=== PATIENT | male | born 1980 | race Caucasian/White ===

== ENCOUNTER 2018-11-26 00:14 | Day surgery (SDC) | payer OTHER ==
[~2018-11-26] VITALS: Ht 175.3 cm; Wt 81.6 kg
[2018-11-26] VITALS (9 sets, daily range): BP systolic 93–128; BP diastolic 60–77
[~2018-11-26 00:14] MED LIST: ASPI81TA94 PO; SAW450CA3 PO
[2018-11-26] MEDS ORDERED: LIDOCAINE MPF 1% 5 ML VIAL ONE (07:46)
[2018-11-26] MEDS ORDERED: PROPOFOL EMUL(*) 10MG/ML 20 ML 20 ML ONE (07:46)
[2018-11-26] MEDS ORDERED: METOCLOPRAMIDE 10 MG/2 ML SDV ONE (07:46)
[2018-11-26] MEDS ORDERED: ONDANSETRON 4 MG/2 ML VIAL ONE (07:46)
[2018-11-26] MEDS ORDERED: DEXAMETHASONE SOD 4 MG/ML VIAL ONE (07:46)
[2018-11-26] MEDS ORDERED: ROCURONIUM BROM 10 MG/ML 10 ML ONE (07:49)
[2018-11-26] MEDS ORDERED: SUGAMMADEX SOD 200 MG/2 ML SDV ONE (07:49)
[2018-11-26] MEDS ORDERED: LIDOCAINE/SOD BICARB 8.4% SYR ID ONE (08:25)
[2018-11-26] MEDS ORDERED: NORMOSOL R SOLN(*) 1000 ML BAG 1,000 ML IV PRN (08:25)
[2018-11-26] MEDS ORDERED: MIDAZOLAM 2 MG/2 ML VIAL IVP PRN (08:25)
[2018-11-26] MEDS ORDERED: FAMOTIDINE 20 MG TAB PO ONE (08:25)
[2018-11-26] MEDS ORDERED: fentaNYL CITR 100 MCG/2 ML AMP ONE ×3 (08:42→11:59)
[2018-11-26] MEDS ORDERED: CLINDAMYCIN(*) 600 MG/NS 50 ML 50 ML IVPB ONE (08:55)
[2018-11-26] MEDS ORDERED: LEVOFLOXACIN/D5W 750 MG/150 ML 150 ML IVPB ONE (08:55)
[2018-11-26] MEDS ORDERED: BUPIVACAINE/EPI 0.5% 50ML VIAL INFIL ONE (09:20)
[2018-11-26] MEDS ORDERED: TRAM-420 PO (10:57)
--- NOTE | 2018-11-26 11:04 | Short(Outpt) Discharge Summary ---
Discharge Summary Reason for Hosp/Final Diag: (1) Right inguinal hernia Hospital Course & Plan: 38 yo m presented for right inguinal hernia repair. he tolerated the procedure well and there were no complications. he will discharged home when criteria met. Departure Discharge to: Home Discharge Instructions Home Meds Active Scripts Tramadol Hcl (TRAMADOL HCL) 50 Mg Tablet, 1 TAB PO Q4H PRN for PAIN, #20 TAB 0 Refills Prov:JOAO CASTANO MD 11/26/18 Diet: Regular Special Instructions: no lifting more than 15 lbs for 3 wks ok to shower tomorrow stool softener and scrotal support can be helpful please call for 2 wk follow up appt ([phone]) TERI LLAMAS Nov 26, 2018 11:04
--- NOTE | 2018-11-26 11:09 | Post Operative Progress Note ---
Post Operative Progress Note Date: Nov 26, 2018 Time: 11:05 Surgeon: chayito cota md #[id number] Accreditation Coordinator: none Anesthesia: gen, local dr. deal Pre-Op Diagnosis: right inguinal hernia Post-Op Diagnosis: same Findings: indirect right inguinal hernia Procedure(s): laparoscopic right inguinal hernia repair with mesh Specimen Removed:(May be N/A): none Complications: none Fluids: iv crystalloid Estimated Blood Loss: minimal Date OP Note Dictated: Nov 26, 2018 Time OP Note Dictated: 11:06 TERI COTA Nov 26, 2018 11:09
--- NOTE | 2018-11-26 11:38 | OPERATIVE REPORT 1 ---
EVENT DATE: November 26, 2018 SURGEON: Davion Lou MD ANESTHESIOLOGIST: Ye Jiménez MD ANESTHESIA: General and local PREOPERATIVE DIAGNOSIS Right inguinal hernia. POSTOPERATIVE DIAGNOSIS Right inguinal hernia. PROCEDURE PERFORMED Laparoscopic right inguinal hernia repair with mesh. FLUIDS IV Crystalloid ESTIMATED BLOOD LOSS Minimal. SPECIMENS None. COMPLICATIONS None. INDICATIONS This is a 38-year-old male with a right inguinal hernia that is bothersome to him. Risk and benefits of the procedure were explained and consent was signed. DESCRIPTION OF PROCEDURE The patient was taken to the operating room and placed in the supine position. General anesthesia was administered per the anesthesia team. He was prepped and draped in the normal sterile fashion. Local analgesia was injected in the dermis above the umbilicus and a small vertical incision was made. The umbilical stump was grasped and elevated. Veress needle was inserted and pneumoperitoneum was achieved. The Veress needle was removed. A 5 mm port was advanced. After injecting local analgesia under direct, a 5 mm right sided port and a 5 mm and a 5 mm left sided port were placed and the supraumbilical port was exchanged for a 12 mm port. I inspected the abdomen and there was no injury upon entry. There was no significant hernia on the left, only a small divot. On the right, there was an indirect inguinal hernia. The peritoneal flap was created with LigaSure. This was taken down to Uriel's ligament. The hernia sac was completely reduced and this was taken down below the level of the iliopubic tract. Care was taken to protect the cord structures as well as the inferior epigastric vessels. A piece of 15 x 10 cm ProGrip right sided inguinal hernia mesh was placed and made to lie flat. The peritoneal flap was then reapproximated with a running absorbable V-Loc stitch with the Endo-stitch device. Tap lock was placed on the right under laparoscopic vision. The fascial closure device with an 0 Vicryl stitch was used to close the fascia of the supraumbilical port site. The left sided port was removed under direct vision. Hemostasis was assured. Pneumoperitoneum was relieved. Final port was removed. All skin incisions were closed with 4-0 Monocryl subcuticular stitches. More local analgesia was injected. Appropriate dressing were applied. The patient tolerated the procedure. There were no complications. [facility]
[2018-11-26] MEDS ORDERED: traMADol 50 MG TAB ONE (14:08)
== END 2018-11-26 11:48 | disposition home or self-care (01) ==
LOC: OR 00:14
PROVIDERS: ATTEND Surgery
DX: K40.90 Unilateral inguinal hernia, without obstruction or gangrene, not specified as recurrent (principal)
CPT/HCPCS: 49650; C1727; C1781; J1100; J1956; J2001; J2405; J2704; J2765; J3010; J3490

== ENCOUNTER 2019-01-12 10:19 | Emergency (ER) | payer OTHER ==
[~2019-01-12 10:19] MED LIST changes: +TRAM-420 PO
--- NOTE | 2019-01-12 10:22 | ER Report ---
History and Physical Time Seen By MD: 10:22 HPI/ROS CHIEF COMPLAINT: Cough, shortness of breath HISTORY OF PRESENT ILLNESS: Patient is a 38-year-old male here with complaints of cough, shortness breath since last weekend when he was evaluated by urgent care and placed on a Z-Jose and 20 mg of prednisone for 4 days. Patient reports having persistent dyspnea, cough in spite of using albuterol inhaler once or twice a day. Patient does have a history suspicious for reactive airway disease likely compounding his current respiratory difficulty. Patient reports decreased appetite, fatigue. Patient is able to tolerate oral intake and denies abdominal pain, vomiting. REVIEW OF SYSTEMS: Constitutional: + intermittent fever, + chills. Eyes: No discharge. ENT: No sore throat. Cardiovascular: No chest pain, no palpitations. Respiratory: + cough, + shortness of breath. Gastrointestinal: No abdominal pain, no vomiting. Genitourinary: No hematuria. Musculoskeletal: No back pain. Skin: No rashes. Neurological: No headache. Allergies: Coded Allergies: Penicillins (Unverified Allergy, Severe, 01/12/19) morphine (Verified Adverse Reaction, Mild, NAUSEA, 01/12/19) Home Meds Active Scripts Prednisone (PREDNISONE) 50 Mg Tablet, 50 MG PO QDAY for 4 Days, #4 TAB Prov:KRISTEL SORENSEN DO 01/12/19 Tramadol Hcl (TRAMADOL HCL) 50 Mg Tablet, 1 TAB PO Q4H PRN for PAIN, #20 TAB 0 Refills Prov:JOAO CASTANO MD 11/26/18 Hx Smoking: No Smoking Status: Never Smoker Exposure to Second Hand Smoke?: No Hx Alcohol Use: Yes Constitutional Vital Sign - Last 24 Hours 01/12/19 01/12/19 01/12/19 01/12/19 10:22 10:22 10:24 10:29 Pulse 92 83 81 Resp 20 B/P (MAP) 136/88 (104) 136/88 Pulse Ox 98 94 97 O2 Delivery Room Air 01/12/19 01/12/19 01/12/19 01/12/19 10:30 10:34 10:45 10:48 Pulse 70 82 Resp 18 B/P (MAP) 141/83 (102) 110/73 (85) Pulse Ox 95 01/12/19 01/12/19 01/12/19 01/12/19 10:48 10:49 10:54 11:00 Pulse 85 95 99 Resp 20 Pulse Ox 92 94 100 O2 Delivery Room Air 01/12/19 01/12/19 01/12/19 01/12/19 11:04 11:09 11:14 11:19 Pulse 80 76 80 83 Pulse Ox 96 98 86 81 O2 Delivery Room Air Room Air 01/12/19 01/12/19 01/12/19 01/12/19 11:20 11:20 11:24 11:26 Pulse 73 82 Resp 16 Pulse Ox 100 100 99 O2 Delivery Nasal Cannula Nasal Cannula O2 Flow Rate 3.0 2.0 01/12/19 01/12/19 01/12/19 01/12/19 11:26 11:29 11:30 11:34 Pulse 87 79 93 Resp 16 B/P (MAP) 132/66 (88) Pulse Ox 100 100 O2 Delivery Nasal Cannula O2 Flow Rate 2 01/12/19 01/12/19 01/12/19 01/12/19 11:39 11:44 11:49 11:54 Pulse 99 ??? 96 93 Pulse Ox 98 98 94 01/12/19 01/12/19 01/12/19 01/12/19 11:59 12:00 12:04 12:09 Pulse 97 99 104 B/P (MAP) 120/63 (82) Pulse Ox 99 95 95 01/12/19 01/12/19 01/12/19 01/12/19 12:14 12:19 12:24 12:34 Pulse 100 107 102 95 Pulse Ox 98 94 91 94 01/12/19 01/12/19 01/12/19 01/12/19 12:39 12:44 12:49 12:54 Pulse 98 97 86 93 Pulse Ox 95 93 94 95 O2 Delivery Nasal Cannula O2 Flow Rate 2 01/12/19 01/12/19 01/12/19 01/12/19 12:59 13:04 13:09 13:14 Pulse 85 88 81 91 B/P (MAP) 114/73 (87) Pulse Ox 98 95 96 97 01/12/19 01/12/19 01/12/19 01/12/19 13:19 13:24 13:29 13:30 Pulse 78 84 76 B/P (MAP) 109/71 (84) Pulse Ox 97 96 97 01/12/19 01/12/19 13:34 13:39 Pulse 78 87 Pulse Ox 95 97 Physical Exam General Appearance: The patient is alert, has no immediate need for airway protection and no signs of toxicity. + uncomfortable appearing Eyes: Pupils equal and round no pallor or injection. ENT, Mouth: Mucous membranes are moist. Respiratory: + diffuse wheezing and intermittent cough Cardiovascular: Regular rate and rhythm. Gastrointestinal: Abdomen is soft and non tender, no masses, bowel sounds normal. Neurological: No focal deficits Skin: Warm and dry, no rashes. Musculoskeletal: Neck is supple non tender. Extremities are nontender, nonswollen and have full range of motion. DIFFERENTIAL DIAGNOSIS: After history and physical exam differential diagnosis was considered for shortness of breath including but not limited to pulmonary infectious process, COPD, asthma, pulmonary embolus and congestive heart failure. Medical Decision Making Data Points Result Diagram: 01/12/19 1043 01/12/19 1043 Laboratory Hematology Test 01/12/19 10:43 01/12/19 10:50 Red Blood Count 5.14 M/uL (4.00-5.60) Mean Corpuscular Volume 89.7 fL (80.0-96.0) Mean Corpuscular Hemoglobin 30.9 pg (26.0-33.0) Mean Corpuscular Hemoglobin Concent 34.5 g/dL (32.0-36.0) Red Cell Distribution Width 13.4 % (11.5-14.5) Mean Platelet Volume 6.8 fL (7.2-11.1) Neutrophils (%) (Auto) 76.0 % (39.4-72.5) Lymphocytes (%) (Auto) 16.3 % (17.6-49.6) Monocytes (%) (Auto) 6.2 % (4.1-12.4) Eosinophils (%) (Auto) 1.0 % (0.4-6.7) Basophils (%) (Auto) 0.5 % (0.3-1.4) Nucleated RBC Relative Count (auto) 0.0 /100WBC Neutrophils # (Auto) 6.8 K/uL (2.0-7.4) Lymphocytes # (Auto) 1.5 K/uL (1.3-3.6) Monocytes # (Auto) 0.6 K/uL (0.3-1.0) Eosinophils # (Auto) 0.1 K/uL (0.0-0.5) Basophils # (Auto) 0.0 K/uL (0.0-0.1) Nucleated RBC Absolute Count (auto) 0.00 K/uL D-Dimer Quantitative (PE/DVT) < 0.27 ug/ml (0-0.50) Sodium Level 140 mmol/L (137-145) Potassium Level 3.2 mmol/L (3.5-5.0) Chloride Level 106 mmol/L (98-107) Carbon Dioxide Level 26 mmol/L (22-30) Blood Urea Nitrogen 10 mg/dl (9-21) Creatinine 1.00 mg/dl (0.66-1.25) Glomerular Filtration Rate Calc > 60.0 Random Glucose 97 mg/dl (75-110) Calcium Level 9.0 mg/dl (8.4-10.2) Total Bilirubin 0.9 mg/dl (0.2-1.3) Aspartate Amino Transf (AST/SGOT) 22 U/L (0-35) Alanine Aminotransferase (ALT/SGPT) 44 U/L (0-56) Alkaline Phosphatase 75 U/L (0-126) Total Protein 7.2 g/dl (6.3-8.2) Albumin 4.5 g/dl (3.5-5.0) Influenza Virus Type A (PCR) Positive (NEGATIVE) Influenza Virus Type B (PCR) Negative (NEGATIVE) Chemistry Test 01/12/19 10:43 01/12/19 10:50 White Blood Count 9.0 k/uL (4.5-11.0) Red Blood Count 5.14 M/uL (4.00-5.60) Hemoglobin 15.9 g/dL (14.0-18.0) Hematocrit 46.1 % (42.0-52.0) Mean Corpuscular Volume 89.7 fL (80.0-96.0) Mean Corpuscular Hemoglobin 30.9 pg (26.0-33.0) Mean Corpuscular Hemoglobin Concent 34.5 g/dL (32.0-36.0) Red Cell Distribution Width 13.4 % (11.5-14.5) Platelet Count 279 K/uL (150-450) Mean Platelet Volume 6.8 fL (7.2-11.1) Neutrophils (%) (Auto) 76.0 % (39.4-72.5) Lymphocytes (%) (Auto) 16.3 % (17.6-49.6) Monocytes (%) (Auto) 6.2 % (4.1-12.4) Eosinophils (%) (Auto) 1.0 % (0.4-6.7) Basophils (%) (Auto) 0.5 % (0.3-1.4) Nucleated RBC Relative Count (auto) 0.0 /100WBC Neutrophils # (Auto) 6.8 K/uL (2.0-7.4) Lymphocytes # (Auto) 1.5 K/uL (1.3-3.6) Monocytes # (Auto) 0.6 K/uL (0.3-1.0) Eosinophils # (Auto) 0.1 K/uL (0.0-0.5) Basophils # (Auto) 0.0 K/uL (0.0-0.1) Nucleated RBC Absolute Count (auto) 0.00 K/uL D-Dimer Quantitative (PE/DVT) < 0.27 ug/ml (0-0.50) Glomerular Filtration Rate Calc > 60.0 Calcium Level 9.0 mg/dl (8.4-10.2) Total Bilirubin 0.9 mg/dl (0.2-1.3) Aspartate Amino Transf (AST/SGOT) 22 U/L (0-35) Alanine Aminotransferase (ALT/SGPT) 44 U/L (0-56) Alkaline Phosphatase 75 U/L (0-126) Total Protein 7.2 g/dl (6.3-8.2) Albumin 4.5 g/dl (3.5-5.0) Influenza Virus Type A (PCR) Positive (NEGATIVE) Influenza Virus Type B (PCR) Negative (NEGATIVE) Coagulation Test 01/12/19 10:43 D-Dimer Quantitative (PE/DVT) < 0.27 ug/ml EKG/Imaging Imaging PATIENT NAME: Luis Angel Mendez : 1980 MR: [id number] V: [id number] EXAM DATE: ORDERING PHYSICIAN: KRISTEL SORENSEN TECHNOLOGIST: Location: [facility] Patient: Luis Angel Mendez : 1980 Visit/Account:[id number] Date of [place] [facility]: 01/12/2019 Chest with lateral, 2 views. HISTORY: Respiratory distress, cough. COMPARISON: 12/17/2013. The heart and mediastinum are unremarkable. Pulmonary vessels are unremarkable. The lungs are clear. The pleural surfaces are unremarkable. No pneumothorax. The bones are unremarkable. IMPRESSION: No evidence of acute cardiopulmonary disease. ED Course/Re-evaluation ED Course Patient is a 38-year-old male here with complaints of cough, shortness breath, wheezing likely secondary to an undiagnosed reactive airway disease. Patient responded well to DuoNeb and was given an albuterol inhaler, prednisone, magnesium for initial treatment. Patient was discharged with prednisone course. Chest x-ray showed no acute findings. PCP follow-up recommended, and return precautions were provided. Decision to Disposition Date: Jan 12, 2019 Decision to Disposition Time: 12:50 Depart Departure Latest Vital Signs Vital Signs Date Time Temp Pulse Resp B/P (MAP) Pulse Ox O2 Delivery O2 Flow Rate FiO2 01/12/19 13:39 87 97 01/12/19 13:30 109/71 (84) 01/12/19 12:49 Nasal Cannula 2 01/12/19 11:26 16 Impression: Primary Impression: Influenza A Additional Impression: Reactive airway disease Condition: Improved Disposition: HOME OR SELF-CARE Referrals: JAZMINE CARLSON PA-C (PCP) New Scripts Prednisone (PREDNISONE) 50 Mg Tablet 50 MG PO QDAY for 4 Days, #4 TAB Prov: KRISTEL SORENSEN DO 01/12/19 Departure Forms: ER Transition Record, Medications Reconciliation, Off Work/School Form, School or Work Release?: Work Number of days to be released: 3 Patient Portal Information Patient Instructions: Asthma (ED), Influenza (DC) Additional Instructions: Please take prednisone 50 mg daily for 4 days. Please use your inhaler up to 2 puffs every 4-6 hours as needed for wheezing and shortness of breath. Please follow-up with her primary care doctor in the next 24-48 hours for reevaluation. Please return immediately if you develop increased shortness breath, worsening cough, fevers, inability keep down food or fluids. Problem Qualifiers KRISTEL SORENSEN DO Jan 12, 2019 10:22
[2019-01-12] MEDS: ALBUTEROL/IPRATROPIUM 3 ML NEB NEB SCH ×2 (10:51→11:22)
[2019-01-12 10:54] LABS: PLATELET COUNT, AUTOMATED 279 K/uL (150-450)
--- NOTE | 2019-01-12 11:14 | RADIOLOGY IMAGING REPORT ---
FACILITY: [facility] PATIENT NAME: Luis Angel Mendez : 1980 MR: [id number] V: [id number] EXAM DATE: ORDERING PHYSICIAN: KRISTEL SORENSEN TECHNOLOGIST: Location: [facility] Patient: Luis Angel Mendez : 1980 Visit/Account:[id number] Date of [place]: 01/12/2019 Chest with lateral, 2 views. HISTORY: Respiratory distress, cough. COMPARISON: 12/17/2013. The heart and mediastinum are unremarkable. Pulmonary vessels are unremarkable. The lungs are clear . The pleural surfaces are unremarkable. No pneumothorax. The bones are unremarkable. IMPRESSION: No evidence of acute cardiopulmonary disease. Report Dictated By: Cheko Guerrier MD at 01/12/2019 11:08 AM Report E-Signed By: Cheko Guerrier MD at 01/12/2019 11:09 AM WSN:[id number]
[2019-01-12] MEDS ORDERED: MAGNESIUM SUL* 2 GM/50 ML IVPB 50 ML IVPB ONE (11:25)
[2019-01-12] MEDS ORDERED: PROPRANOLOL HCL 20 MG TAB PO ONE (12:30)
[2019-01-12] MEDS ORDERED: NS(*) 0.9% 1000 ML BAG 1,000 ML IV ONE (12:35)
[2019-01-12] MEDS ORDERED: predniSONE 20 MG TAB PO ONE (12:35)
[2019-01-12] MEDS ORDERED: PRED50TA22 PO (12:51)
[2019-01-12 13:30] VITALS: BP 109/71
== END 2019-01-12 13:48 | disposition home or self-care (01) ==
LOC: ER 10:37
DX: J11.1 Influenza due to unidentified influenza virus with other respiratory manifestations (principal); J45.909 Unspecified asthma, uncomplicated
CPT/HCPCS: 71046; 85025; 85379; 87502; 94640; 96361; 96365; 99284; J3475; J7030; J7512; J7620; 82040; 82247; 82310; 82374; 82435; 82565; 82947; 84075; 84132; 84155; 84295; 84450; 84460; 84520; 99283